=== PATIENT | male | born 1990 | race African-American/Black ===

== ENCOUNTER 2021-12-30 09:38 | Emergency (ER) | payer SELFPAY | END 2021-12-30 10:20 | disposition home or self-care (01) | LOC: CSHERS 09:38 | DX: L03.211 Cellulitis of face (principal); L08.9 Local infection of the skin and subcutaneous tissue, unspecified | CPT/HCPCS: 99283 ==

== ENCOUNTER 2021-12-31 12:08 | Emergency (ER) | payer OTHER, SELFPAY ==
[2021-12-31] MEDS ORDERED: Ketorolac Tromethamine 30 MG/ML VIAL ONE (13:32)
[2021-12-31] MEDS ORDERED: Iopamidol 300 61% 100 ML VIAL FS ONE (15:49)
== END 2021-12-31 15:19 | disposition home or self-care (01) ==
LOC: CSHERS 12:08
DX: L02.03 Carbuncle of face (principal); R60.0 Localized edema
CPT/HCPCS: 70481; 96374; J1885; Q9967

== ENCOUNTER 2022-03-16 11:18 | Emergency (ER) | payer OTHER, SELFPAY | END 2022-03-16 14:45 | disposition home or self-care (01) | LOC: CSHERS 11:18 | DX: J10.1 Influenza due to other identified influenza virus with other respiratory manifestations (principal); Z20.822 Contact with and (suspected) exposure to COVID-19 | CPT/HCPCS: 87804; 99284; U0003; U0005 ==